=== PATIENT | female | born 1970 | race Caucasian/White ===

== ENCOUNTER 2019-06-06 10:25 | Emergency (ER) | payer BC ==
[2019-06-06 10:38] VITALS: BP 115/71
--- NOTE | 2019-06-06 11:16 | UC ---
Eye Complaint HPI - HPI Summary HPI Summary: 48 year old female with complaint of right upper eyelid erythema, swelling and tenderness worsening over two days. Denies any trauma to the area. - History of Current Complaint Chief Complaint: UCEye Stated Complaint: RT EYE CONCERN Time Seen by Provider: 06/06/19 11:08 Hx Obtained From: Patient Hx Last Menstrual Period: 06/05/19 Onset/Duration: Gradual Onset, Lasting Days - two Timing: Constant Pain Intensity: 3 Associated Signs And Symptoms: Positive: Swelling - right upper eyelid. Negative: Photophobia, Drainage (Clear), Drainage (Purulent), Vision Impairment Bilateral - Allergies/Home Medications Allergies/Adverse Reactions: Allergies Allergy/AdvReac Type Severity Reaction Status Date / Time No Known Allergies Allergy Verified 06/06/19 10:33 Home Medications: Home Medications Ferrous Sulfate TAB* 325 mg PO DAILY 06/06/19 [History Confirmed 06/06/19] Spironolactone TAB* [Aldactone TAB 25 MG*] 50 mg PO BID 06/06/19 [History Confirmed 06/06/19] PMH/Surg Hx/FS Hx/Imm Hx Previously Healthy: Yes Other Endocrine History: PCOS - Surgical History Surgical History: None - Family History Known Family History: Positive: Non-Contributory - Social History Alcohol Use: Occasionally Substance Use Type: None Smoking Status (MU): Never Smoked Tobacco Review of Systems All Other Systems Reviewed And Are Negative: Yes Constitutional: Positive: Negative Skin: Positive: Negative Eyes: Positive: Other - swelling, redness and lora of right upper eyelid.. Negative: Drainage, Eye Redness, Photophobia Respiratory: Positive: Negative Gastrointestinal: Positive: Negative Genitourinary: Positive: Negative Motor: Positive: Negative Neurovascular: Positive: Negative Neurological: Positive: Negative Psychological: Positive: Negative Is Patient Immunocompromised?: No Physical Exam Triage Information Reviewed: Yes Appearance: Well-Appearing Vital Signs: Initial Vital Signs Temp 98.3 F 06/06/19 10:32 Pulse 66 06/06/19 10:32 Resp 16 06/06/19 10:32 BP 115/71 06/06/19 10:32 Pulse Ox 98 06/06/19 10:32 Vital Signs Reviewed: Yes Eyes: Positive: Conjunctiva Clear, Other: - swelling and erythema of upper right eyelid. No foreign body identified.. Negative: Discharge ENT: Positive: Normal ENT inspection Neck: Positive: Supple, Nontender, No Lymphadenopathy Respiratory: Positive: Chest non-tender, Lungs clear Cardiovascular: Positive: RRR, No Murmur Abdomen Description: Positive: Nontender, Soft Musculoskeletal Exam: Normal Neurological Exam: Normal Psychological Exam: Normal Skin Exam: Normal Eye Complaint Course/Dx - Differential Dx/Diagnosis Provider Diagnosis: Hordeolum externum (stye) Discharge ED - Sign-Out/Discharge Documenting (check all that apply): Patient Departure All imaging exams completed and their final reports reviewed: Yes - Discharge Plan Condition: Stable Disposition: HOME Prescriptions: Erythromycin OPTH OINT* [Erythromycin 0.5% OPTH OINT*] 1 applic RIGHT EYE BID # 1 tube Patient Education Materials: Stye (ED) Referrals: Rahat Golden MD [Primary Care Provider] - Additional Instructions: Take ibuprofen over the counter as needed for pain. Apply eye ointment twice daily until the stye improves. If symptoms persist or worsen, follow-up with an ophthomologist (Eye doctor). - Billing Disposition and Condition Condition: STABLE Disposition: Home
== END 2019-06-06 11:26 | disposition home or self-care (01) ==
LOC: UCCORT 10:25
DX: H00.011 Hordeolum externum right upper eyelid (principal)
CPT/HCPCS: 99202; G0463